=== PATIENT | female | born 1995 | race Caucasian/White ===

== ENCOUNTER → 2022-05-22 13:41 | Outpatient (CLI) | payer OTHER, SELFPAY ==
--- NOTE | ~2022-05-22 | US_ITS ---
EXAMINATION: US soft tissue head and neck DATE: 05/22/2022 14:03 INDICATION: Right neck mass. TECHNIQUE: Multiple grayscale and Doppler ultrasound images of the neck were obtained. COMPARISON: None FINDINGS: There are 2 normal lymph nodes in the right parotid gland in the patient's area of concern. IMPRESSION: 1. No abnormal mass or lymphadenopathy in the patient's area of concern. Reviewed, dictated and finalized at location A.
== END ==
PROVIDERS: PCP Family Medicine Sports Medicine; Visit Provider Family Medicine Sports Medicine
DX: R22.1 Localized swelling, mass and lump, neck (principal)
CPT/HCPCS: 76536

== ENCOUNTER → 2023-03-08 14:37 | Outpatient (CLI) | payer OTHER, SELFPAY ==
--- NOTE | ~2023-03-08 | US_ITS ---
Pelvic ultrasound. Clinical History: Irregular menses, fibroid, cyst Technique: Realtime transabdominal scanning of the pelvis was performed. Color flow Doppler and Doppl er spectral analysis were performed. Findings: The uterus is anteverted. The endometrial stripe has a thickness of 7 mm. No focal mass is identified. The right ovary measures 3.2 x 1.9 x 2.7 cm. No significant right ovarian or adnexal mass is seen. The left ovary measures 3.6 x 2.8 x 2.0 cm. No significant left ovarian or adnexal mass is seen. Vascular flow present in both ovaries on Doppler spectral analysis. There is no evidence of free fluid in the cul de sac. Impression: Unremarkable pelvic ultrasound. Reviewed, dictated and finalized at [facility]. SPRAYER Impression: Unremarkable pelvic ultrasound.
== END ==
PROVIDERS: PCP Chiropractor; Visit Provider Chiropractor
DX: D25.9 Leiomyoma of uterus, unspecified (principal)
CPT/HCPCS: 76856